=== PATIENT | male | born 1955 | race Caucasian/White ===

== ENCOUNTER → 2016-09-21 | Outpatient (CLI) | payer OTHER ==
[2015-11-15 10:16] VITALS: BP 160/92
--- NOTE | 2016-09-23 06:50 | RAD ---
HISTORY: Nontraumatic left hip pain Study: Left hip two views, AP pelvis Comparison: None Findings: A single frontal view of the pelvis demonstrates the pelvic ring to be intact. No evidence for acut e cortical disruption or dislocation of the hip can be observed. Frog leg views of the hip fails to demonstrate evidence for fracture or significant joint abnormality. Impression: 1. Negative exam. Reported By:
--- NOTE | 2016-09-23 07:15 | RAD ---
Two views of the left knee Indication: Left knee pain. Findings: There is no fracture or dislocation identified within the left knee. There is a moderate-s ized suprapatellar joint effusion with edema noted within the infrapatellar fat. Mild enthesopathic change of the distal quadriceps tendon. There is very mild degenerative change within the medial or lateral femorotibial compartments. Impression: Moderate-sized suprapatellar joint effusion and edema within the infrapatellar fat is no nspecific; however given the mild degenerative change and absence of definite fracture raises concer n for a soft tissue/ligamentous injury and clinical correlation is needed. Reported By:
== END ==
LOC: RAD 14:24
PROVIDERS: ATTEND Anesthesiology Pain Medicine
DX: M25.562 Pain in left knee (principal); M25.552 Pain in left hip
CPT/HCPCS: 73501; 73560